=== PATIENT | female | born 1970 | race Caucasian/White ===

== ENCOUNTER 2018-01-14 20:32 | Emergency (ER) | payer MEDICAID ==
[~2018-01-14] VITALS: Ht 172.7 cm; Wt 88.6 kg
[2018-01-14 20:52] VITALS: BP 141/94; Ht 172.7 cm; Wt 88.6 kg
== END 2018-01-14 22:30 | disposition left against medical advice (07) ==
LOC: D.ER 20:32
DX: T25.022A Burn of unspecified degree of left foot, initial encounter (principal); X12.XXXA Contact with other hot fluids, initial encounter; Y93.89 Activity, other specified; Y92.019 Unspecified place in single-family (private) house as the place of occurrence of the external cause

== ENCOUNTER 2018-10-21 19:56 | Emergency (ER) | payer MEDICAID ==
[~2018-10-21] VITALS: Ht 172.7 cm; Wt 88.6 kg
[2018-10-21 20:01] VITALS: BP 149/84; Ht 172.7 cm; Wt 88.6 kg
[2018-10-21 20:30] LABS: BASOPHILS 0.3 % (0-2); EOSINOPHILS 5.8 % (0-7); HEMATOCRIT 35.2 % (36.0-48.0); HEMOGLOBIN 11.4 g/dL (12-16); IMMATURE GRANULOCYTES 0.2 % (0-5); LYMPHOCYTES 28.8 % (15-50); MCH 27.2 pg (26.0-34.0); MCHC 32.4 g/dL (31.0-37.0); MEAN PLATELET VOLUME 9.4 fL (7.4-10.4); MONOCYTES 5.5 % (2-11); NEUTROPHILS 59.4 % (40-80); PLATELET COUNT 264 10x3/uL (130-400); RBC 4.19 10x6/uL (4.00-5.40); RDW 17.8 % (11.5-14.5); WBC 9.9 10x3/uL (4.8-10.8)
[2018-10-21 20:44] LABS: ALBUMIN 3.3 g/dL (3.4-5.0); ALKALINE PHOSPHATASE 98 U/L (46-116); ALT (SGPT) 21 U/L (10-68); CALC OSMOLALITY 279 mosm/kg (275-300); CALCIUM 8.5 mg/dL (8.5-10.1); CARBON DIOXIDE 29.9 mmol/L (21.0-32.0); CHLORIDE - SERUM 104 mmol/L (98-107); CREATININE - SERUM 0.8 mg/dL (0.6-1.3); GLUCOSE 83 mg/dL (74-106); POTASSIUM - SERUM 3.6 mmol/L (3.5-5.1); PROTEIN - SERUM 7.1 g/dL (6.4-8.2); SODIUM 140 mmol/L (136-145); UREA NITROGEN 18 mg/dL (7-18); eGFR NON AFRICAN AMERICAN 81 mL/min (90-120)
== END 2018-10-21 21:16 | disposition home or self-care (01) ==
LOC: D.ER 19:56
PROVIDERS: Emergency Medicine
DX: N76.4 Abscess of vulva (principal)